=== PATIENT | male | born 1970 | race Caucasian/White ===

== ENCOUNTER 2020-09-20 18:08 | Emergency (ER) | payer BC, SELFPAY ==
[2020-09-20 18:12] VITALS: BP 127/73; PULSE 48; RESP 16; TEMP 36.4; O2SAT 98
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
== END 2020-09-20 19:00 | disposition home or self-care (01) ==
PROVIDERS: Emergency Provider Physician Assistant
DX: S81.011A Laceration without foreign body, right knee, initial encounter (principal); V18.0XXA Pedal cycle driver injured in noncollision transport accident in nontraffic accident, initial encounter
CPT/HCPCS: 12001; 90471